=== PATIENT | female | born 1955 | race Caucasian/White ===

== ENCOUNTER 2016-10-02 20:38 | Emergency (ER) | payer OTHER ==
[2016-10-02] MEDS ORDERED: ONDANSETRON HCL/PF 2 MG/ML VIAL IV ONE (21:33)
[2016-10-02] MEDS ORDERED: HYDROmorphone HCL 1 MG/ML DISP.SYRIN IV ONE (21:33)
[2016-10-02] MEDS ORDERED: NORMAL SALINE 1,000 ML IV ONE (21:34)
[2016-10-02] MEDS ORDERED: HYDROmorphone HCL 1 MG/ML DISP.SYRIN ONE (21:41)
[2016-10-02] MEDS ORDERED: ONDANSETRON HCL/PF 2 MG/ML VIAL ONE (21:41)
--- NOTE | 2016-10-02 22:23 | ERNOTE ---
Upper Extremity HPI - Narrative Date of Service: 10/02/16 - General Time Seen by Provider: 10/02/16 20:56 Source: patient Exam Limitations: no limitations - Immun/Allergies/Home Medications Immunizations: IMMUNIZATION HX Immunizations Up to Date No History of Influenza Vaccine No Hx Pneumococcal Vaccination No Allergies/Adverse Reactions: Allergies Allergy/AdvReac Type Severity Reaction Status Date / Time No Known Allergies Allergy Unverified 10/02/16 21:03 Home Medications: HOME MEDICATIONS HYDROcodone/ACETAMINOPHEN [[place] 5-325] 1 each PO Q6H PRN #12 tablet 10/02/16 [ Last Taken Unknown] Ondansetron [Zofran Odt] 4 mg PO Q6H PRN #20 tab 10/02/16 [Last Taken Unknown] - History of Present Illness Narrative: pt slipped and fell on ice and has pain and swelling in left elbow Review of Systems - Review of Systems Constitutional: Present: no symptoms reported Respiratory: Present: no symptoms reported Cardiology: Present: no symptoms reported Gastrointestinal/Abdominal: Present: no symptoms reported Genitourinary: Present: no symptoms reported Musculoskeletal: Present: See HPI - Patient's Past Medical History Patient History - Medical: No pertinent hx Patient History - Cancer: No Hx of Cancer Patient History - Surgical Procedures: Hysterectomy - Social History Living Situations: home Smoking Status: Current every day smoker Patient requests Smoking Cessation Consult: No Initiate information on Smoking Cessation: No Alcohol Use: occasionally Drug Use: none Physical Exam - Physical Exam General Appearance: Present: wd/wn, alert, no apparent distress Respiratory: Present: no respiratory distress, normal breath sounds, no accessory muscle use, chest nontender, lungs clear Cardiovascular/Chest: Present: regular rate, rhythm, no murmur, normal peripheral pulses Extremity Exam: Present: other - left elbow is swollen and tender to palpation. pt has normal function distal to left elbow and sensation is intact in ulnar region ED Progress - Date and Time Seen: Date and Time: 10/02/16 22:15 Xray reveals an olecranon and capitulum fx. Dr. Dawson was consulted and will attempt to reduce the olecranon with anesthesia present and place in double sugarton and sent to ortho clinic on Monday10/04/16 pr on 10/03/[address] Dawson in OR. 10/02/16 22:21 - Vital Signs Patient's Vital Signs:: I have reviewed the patient's vital signs. Vital Signs: Vital Signs 10/02/16 21:03 Temperature 36.1 C L Pulse Rate 68 Respiratory 16 Rate Blood Pressure 112/69 O2 Sat by Pulse 100 Oximetry - Progress/Reassessment Chief Complaint: Upper Extremity Injury/Problem Departure Clinical Impression: Fracture of olecranon process of left ulna Qualifiers: Encounter type: initial encounter Fracture type: closed Qualified Code(s): S52.022A - Displaced fracture of olecranon process without intraarticular extension of left ulna, initial encounter for closed fracture - Departure Disposition: Home self-care Condition: Good Instructions: Elbow Fracture, Simple Prescriptions: HYDROcodone/ACETAMINOPHEN [[place] 5-325] 1 each PO Q6H PRN #12 tablet PRN Reason: Pain Ondansetron [Zofran Odt] 4 mg PO Q6H PRN #20 tab PRN Reason: Nausea
[2016-10-02] MEDS ORDERED: HYDROcodone/ACETAMINOPHEN 1 EACH TABLET PO ONE (22:58)
[2016-10-02] MEDS ORDERED: HYDROcodone/ACETAMINOPHEN 1 EACH TABLET ONE (23:00)
[2016-10-02 23:16] VITALS: BP 130/87
== END 2016-10-02 23:15 | disposition home or self-care (01) ==
LOC: ER 20:38
PROC: 2W3DX1Z Immobilization of Left Lower Arm using Splint (ICD-10-PCS; principal; 2016-10-02)
DX: S52.022A Displaced fracture of olecranon process without intraarticular extension of left ulna, initial encounter for closed fracture (principal); W00.9XXA Unspecified fall due to ice and snow, initial encounter; F17.200 Nicotine dependence, unspecified, uncomplicated; Z90.710 Acquired absence of both cervix and uterus

== ENCOUNTER 2016-10-03 14:10 | Day surgery (SDC) | payer OTHER ==
[~2016-10-03 14:10] MED LIST: RINGERS SOLUTION,LACTATED 1,000 ML IV PRN; ceFAZolin SODIUM 1 GM VIAL IV PRN
[2016-10-03] MEDS ORDERED: RINGERS SOLUTION,LACTATED 1,000 ML IV ONE ×3 (14:26→18:30)
[2016-10-03] MEDS ORDERED: ONDANSETRON HCL/PF 2 MG/ML VIAL IV PRN (14:32)
[2016-10-03] MEDS ORDERED: oxyCODONE HCL/ACETAMINOPHEN 1 TAB TABLET PO ONE (14:50)
--- NOTE | 2016-10-03 19:11 | OR ---
Operative Report - Dictated Report Narrative: Date: 10/03/2016 Physician: Lj Dawson M.D. Nursing Director: Julius Taylor PA-C Preoperative diagnosis: Left elbow trans-olecranon fracture/dislocation with radial neck fracture Postoperative diagnosis: Left elbow trans-olecranon fracture/dislocation with radial neck fracture Procedure: 1. Open reduction internal fixation of left intra-articular olecranon fracture. 2. Left radial head replacement. 3. Intraoperative assessment of fluoroscopy. Anesthesia: General Plus regional anesthesia Complications: None Estimated blood loss: Minimal Tourniquet time: 127 minutes Minutes at 250 mmHg Specimens: None Retained implants: [employer] 7.5 x 85 mm partially threaded cannulated screw and washer, [employer] Evolve 20 mm +4 radial head and [employer]ark Proline 6.5 mm stem Drains: None Indications: Ophelia Is a 61 year-old female who sustained a left elbow trans-olecranon fracture dislocation after a fall. She was initially seen in the [facility] ED for plain films revealed a fracture dislocation of her elbow. Generally close reduction under conscious sedation was placed in a well- padded double sugar tong splint. She followed up in my clinic the following day where we had a discussion about treatment options. I counseled her that I recommended fixation of this fracture to optimize her elbow function going forward. The risks, benefits, and alternatives were discussed in clinic. The risks being bleeding, infection, nerve, tendon, blood vessel injury, persistent pain, wound complications, malunion/nonunion, postoperative arthrosis, stiffness , residual instability, and persistent pain. Consent was obtained in the clinic. Procedure: After marking the correct extremity in the preoperative holding area, a timeout was performed in the operating room. IV antibiotics consisting of 1 gm of Ancef were administered prior to the procedure. Regional followed by general anesthetic was performed by the anesthesia provider without complication. The patient was then placed in a right lateral decubitus position on a beanbag with all bony prominences well-padded and the operative arm over a bone foam ramp. The left upper extremity was then prepped and draped in the usual sterile fashion. A sterile tourniquet was applied to the operative upper arm. The arm was exsanguinated and the tourniquet was inflated to 250 mmHg. We turned our attention first to the olecranon fracture portion of the injury. A posterior approach to the elbow was made cheating the incision slightly medially. Comminution of blunt dissection and electrocautery was carried down through the subcutaneous tissues to the level of the triceps fascia and forearm fascia. Our fracture site was immediately visible. This was debrided using a sharp knife to visualize our fracture leads. The interval between the ECU and FCU was developed along the proximal aspect of the ulna in preparation for tension banding of the olecranon fracture. The radial head was noted to be completely displaced and sitting posterior to the capitellum. Given the patient's age, displacement, and appearance of her radial head it was elected to proceed with radial head replacement as opposed to ORIF over concern whether this would heal. The radial head was retrieved through the olecranon fracture site and sized for radial head replacement. We then turned our attention back to the olecranon fracture this was reduced with [id number] bone reduction clamps and the reduction was confirmed via fluoroscopy. We elected to fix this with a 7.5 mm cannulated screw and tension band wire construct. The guidewire for the 7.5 mm cannulated screw was advanced across the fracture site and into the ulnar canal. We measured our screw length at 85 mm and drilled for the screw. After drilling it was noted that there was a non-displaced fracture line distally that did not appear to be there previous to our drilling this was held reduced with a [id number] clamp while we advanced our 85 mm x 7.5 mm cannulated screw across the olecranon fracture site and across the more distal fracture site. After advancing her screw we removed the [id number] clamps and noted good maintenance of reduction of the distal fracture line and confirmed via fluoroscopy that our screw passed across this distal fracture line by at least 2 cortical diameters. We elected not to use any additional fixation for this more distal intraoperative fracture. After advancing her cannulated screw across the olecranon fracture site it was noted that we had excellent compression and stability at the olecranon fracture site, so it was elected not to add a tension band wire to our construct. With the olecranon fracture fixed we turned our attention to the lateral aspect of the elbow. An approximately 5 cm incision was made centered over the radiocapitellar joint utilizing a standard Webber approach down to the radiocapitellar joint. The joint capsule was incised with a knife and the annular ligament was released with a knife. The radial neck was exposed with blunt dissection and retraction with baby Seferino retractors keeping the forearm in pronation to protect the posterior interosseous nerve. The neck fracture was cleaned up with a perpendicular cut using a reciprocating saw, resecting an additional 2 mm of radial neck. We then sequentially reamed our radial canal in preparation for radial stem. The canal measured 6.5 mm and a 6.5 mm trial stem was inserted. We then trialed 20 mm radial heads and a 20 mm +4 head gave us good stability without overstuffing the joint. The size of our implant was confirmed via fluoroscopy both at the elbow and also at the wrist ensuring that we had restored radial height. The elbow was taken through a range of motion and noted to be stable to varus and valgus with full flexion and full prono- and supination. It was noted that in terminal extension there was a tendency for the radial head to sublux posteriorly with the arm in supination but was stable in full extension with the arm in full pronation. The trial radial head implants were removed and the final implant was impacted into place and reduced. Fluoroscopic images were taken and the elbow was again taken through a full range of motion. We then turned our attention to closing her wounds. Wounds were copiously irrigated with normal saline and then closed in a layered fashion. 0 Vicryl suture was used to close the deep fascia of our posterior incision as well as the joint capsule and EDC fascia of the lateral incision. 3 -0 Vicryl was then used in an interrupted deep dermal fashion on both wounds followed by interrupted 4-0 nylon in a horizontal mattress fashion to close the skin. The wounds were dressed with Xeroform 4 x 4's and Sof-Rol and a well- padded double sugar tong splint was placed with the elbow at 90 of flexion and the forearm in pronation. All sponge, needle, blade, and instrument counts were correct prior to closing the wounds. The patient was awoken and transferred to the postanesthesia care unit in stable condition.
[2016-10-03 20:17] VITALS: BP 155/80
== END 2016-10-03 14:11 | disposition home or self-care (01) ==
LOC: AMB 14:10
PROVIDERS: ATTEND Orthopaedic Surgery
PROC: 0PSL04Z Reposition Left Ulna with Internal Fixation Device, Open Approach (ICD-10-PCS; principal; 2016-10-03 15:00)
PROC: 0PU Upper Bones, Supplement (ICD-10-PCS; 2016-10-03 15:00)
DX: S52.022A Displaced fracture of olecranon process without intraarticular extension of left ulna, initial encounter for closed fracture (principal); S52.132A Displaced fracture of neck of left radius, initial encounter for closed fracture; Z68.24 Body mass index [BMI] 24.0-24.9, adult; W10.9XXA Fall (on) (from) unspecified stairs and steps, initial encounter; Z87.891 Personal history of nicotine dependence